=== PATIENT | female | born 1940 | race Caucasian/White ===

== ENCOUNTER → 2017-12-17 | Day surgery (SDC) | payer MEDICARE ==
[~2017-12-17] VITALS: Ht 152.4 cm; Wt 60.6 kg
[~2017-12-17] MED LIST: *morphine SULFATE 4 MG/ML PERIprocedure ONLY ONE; ACETAMINOPHEN 1000 MG/100 ML 100 ML IV ONE; ACETAMINOPHEN/HYDROcodone 325 MG/5 MG TAB PO PRN; BIOT10TA PO; BRIM.15%O EACH EYE; BUPIVACAINE/EPINEPHRINE 0.25% PF 10 ML VIAL ONE; BUPIVACAINE/EPINEPHRINE 0.5% PF 10 ML VIAL ONE; CALC1TAB87 PO; CHLORHEXIDINE GLUCONATE 2 % 1 PACK (2 CLOTHS) TOPICAL PRN; CIPROFLOXACIN 400 MG PREMIX 200 ML ONE; CIPROFLOXACIN/DEXT 400 MG/200 ML IV ONE; CYAN1TAB24 PO; DEXAMETHASONE SOD PHOS 4 MG/ML VIAL IV ONE; DO NOT ADM ANY ANTICOAGULANT DRUGS PRN; FOLI1TAB6 PO; GLUC15009 PO; LACTATED RINGER'S 1000 ML INJ 1,000 ML IV ONE; LACTATED RINGER'S 1000 ML IV PRN; LIDOCAINE HCL 1% PF 5 ML SYRINGE OTHER ONE; LISI10TA3 PO; METH2.5T PO; METOPROLOL TARTRATE 25 MG TAB PO PRN; MUPIROCIN 2% OINT 22 GM TUBE ONE; ONDANSETRON HCL 4 MG/2 ML VIAL IV PUSH ONE; PHENYLEPH/NS 1000 MCG/10 ML SYR IV ONE; POVIDONE IODINE 5% (ANTISEPSIS KIT) 4 APPLICATIONS EACH NARE PRN; PRED1 PO; PROPOFOL 200 MG/20 ML AMP IV ONE; ROCURONIUM INJ 50 MG/5 ML SYRINGE IV PUSH ONE; SODIUM CHLORID 0.9% 500 ML IV PRN; VITA100018 PO
[2017-12-17 13:49] VITALS: BP 145/68; PULSE 69; RESP 20; TEMP 97.7; O2SAT 96
--- NOTE | 2017-12-17 17:41 | EKG ---
Date Performed: 12/17/2017 Time Performed: 09:03:21 PTAGE: 77 years EKG: Sinus rhythm NORMAL ECG NO PREVIOUS TRACING DOCTOR: Holly De La Cruz Interpretating Date/Time 12/17/2017 17:40:31
--- NOTE | 2017-12-22 17:02 | PD.OP ---
Operative Report Date of Surgery: Dec 17, 2017 Preoperative Diagnosis: (1) Basal cell carcinoma, leg Postoperative Diagnosis: (1) Basal cell carcinoma, leg Procedure: Wide local excision of right anterior knee, right medial knee, left medial lower leg, and left pretibial basal cell carcinomas, all measuring between 1 and 2 cm (07386 x 4) Complex wound closure of right anterior knee, right medial knee, and left medial lower leg wounds, all measuring between 2.5 and 3.5 cm (34978 x 3) Surgeon: Richard Bryant Processing Engineer(s): . Operation and Findings: 77-year-old female who presented to clinic with biopsy-proven right and left lower extremity basal cell carcinomas. Risks benefits alternative treatments were discussed. All questions were answered and the patient expressed understanding. Patient elected to assume the risks of wide local excision of the above lesions. Patient understood that the left pretibial lesion would be left open pending permanent pathology, though the other ones would be closed if this was possible without undue tension. Informed consent was obtained. The surgical sites were marked in the preoperative holding bay. The patient was given antibiotics on-call to the operating room. The patient was taken to the operating room and all pressure points were padded. A surgical timeout was performed. After the smooth induction of general anesthesia, the lesions and their respective excision sites were marked and instilled with quarter percent Marcaine with epinephrine. Surgical sites were prepped and draped in the usual sterile fashion. Attention was then turned to the right anterior knee lesion. This was excised, marked for orientation, and sent for permanent and frozen pathology. The right medial knee, left medial leg, and left pretibial lesions were excised in the exact same fashion. Hemostasis was ensured. All frozen margins were negative. The left pretibial lesion was cleaned, and dressed with mupirocin ointment Xeroform gauze dry gauze fluffs and a Tegaderm. There was significant tension with the right medial knee, right anterior knee, and left medial leg wounds. Because of this, significant undermining was required in all 3 cases. After opposing fascial flaps were raised, the skin was reapproximated with 3-0 Vicryls reapproximating deep fascia, followed by multiple layers of 3- 0 Monocryl in the deep dermis and subcutaneous tissues, followed by a running 4- 0 Monocryl in a subcuticular fashion. After this the surgical sites were cleaned, and dressed in the same fashion as the left pretibial lesion. All needle sponge and instrument counts were correct 2. The patient was awoken from anesthesia and arrived stable and doing well to the PACU. Richard Bryant MD Dec 22, 2017 17:02
== END | disposition home or self-care (01) ==
LOC: HSDC 08:29
PROVIDERS: ATTEND Student in an Organized Health Care Education/Training Program
DX: C44.712 Basal cell carcinoma of skin of right lower limb, including hip (principal); C44.719 Basal cell carcinoma of skin of left lower limb, including hip; Z01.810 Encounter for preprocedural cardiovascular examination
CPT/HCPCS: 00400; 11602; 13121; 88305; 88331; 93005; J0131; J0744; J1100; J2270; J2370; J2405; J3010; J7120